=== PATIENT | female | born 1950 | race Hispanic/Latino ===

== ENCOUNTER 2018-04-10 11:01 | Emergency (ER) | payer MEDICARE, OTHER ==
--- NOTE | 2018-04-10 11:56 | Emergency Department Report ---
ED Back Pain/Injury HPI - General Chief Complaint: Fall Stated Complaint: FELL HURT BACK Source: patient Limitations: No Limitations - History of Present Illness Initial Comments: This is a 68-year-old female who presents with lower back pain for 5 days. Patient state she fell last Friday at home landing on her tailbone. She reports pain as 7 out of 10 on pain scale while sitting or with movement. Pain is sharp and achy sensation. She denies swelling, obvious deformity, change in voiding or bowel pattern, numbness or tingling, radiating pain, paresthesia, or weakness. Complaint: back pain Onset/Timin -: days(s) Similar Symptoms Previously: No Place: home Radiation: abdomen Severity: moderate Severity scale (0 -10): 7 Quality: aching Consistency: intermittent Improves With: none Worsens With: movement, sitting upright Context: fall Associated Symptoms: denies: weakness, numbness, difficulty urinating, incontinence, fever/chills Treatments Prior to Arrival: NSAIDS - Related Data Previous Rx's Medication Instructions Recorded Last Taken Type Ibuprofen [Motrin 800 MG tab] 800 mg PO Q8HR PRN #15 tablet 04/10/18 Unknown Rx methOCARBAMOL [Robaxin TAB] 500 mg PO BID PRN #12 tab 04/10/18 Unknown Rx Allergies Allergy/AdvReac Type Severity Reaction Status Date / Time codeine AdvReac Vomiting Verified 04/10/18 11:20 tramadol AdvReac Vomiting Verified 04/10/18 11:20 ED Review of Systems ROS: Stated complaint: FELL HURT BACK Other details as noted in HPI Constitutional: denies: chills, fever Respiratory: denies: cough, shortness of breath, wheezing Cardiovascular: denies: chest pain, palpitations Gastrointestinal: denies: abdominal pain, nausea, diarrhea Musculoskeletal: back pain. denies: joint swelling, arthralgia Skin: denies: rash, lesions Neurological: denies: headache, weakness, paresthesias Psychiatric: denies: anxiety, depression ED Past Medical Hx - Past Medical History lymphoma ED Back Pain Physical Exam - Exam General: Vital signs noted. No distress. Alert and acting appropriately. Back/Abdomen: Yes Sacroiliac Tenderness (tenderness along L3 through L5, no erythema or swelling), No Abdominal Tenderness, No Perithoracic Tenderness, No Perilumbar Tenderness, No Flank Tenderness, No Straight Leg Raise Pain Neuro: Yes Normal Sensation, Yes Normal DTR's, Yes Normal Gait, No Motor Weakness ED Course Vital Signs 04/10/18 11:14 Temperature 97.9 F Pulse Rate 90 Respiratory 18 Rate Blood Pressure 118/59 O2 Sat by Pulse 97 Oximetry Ed Back Pain Tests - Tests Tests: Normal UA, Normal X Rays ED Medical Decision Making - Lab Data Lab Results 04/10/18 Range/Units 13:06 Urine Color Yellow (Yellow) Urine Turbidity Slightly-cloudy (Clear) Urine pH 6.0 (5.0-7.0) Ur Specific [place] 1.004 (1.003-1.030) Urine Protein <15 mg/dl (Negative) mg/dL Urine Glucose (UA) Neg (Negative) mg/dL Urine Ketones Neg (Negative) mg/dL Urine Blood Neg (Negative) Urine Nitrite Neg (Negative) Urine Bilirubin Neg (Negative) Urine Urobilinogen < 2.0 (<2.0) mg/dL Ur Leukocyte Esterase Sm (Negative) Urine WBC (Auto) 6.0 (0.0-6.0) /HPF Urine RBC (Auto) 2.0 (0.0-6.0) /HPF U Epithel Cells (Auto) 10.0 (0-13.0) /HPF Urine Bacteria (Auto) 2+ (Negative) /HPF Urine Mucus Few /HPF - Radiology Data Radiology results: report reviewed LUMBAR SPINE RADIOGRAPHS INDICATION: Tenderness L3-L5. COMPARISON: None similar at this institution. FINDINGS: AP and lateral lumbar spine radiographs demonstrate normal vertebral body stature and alignment. Possible osteopenia. Slight lower lumbar degenerative spurring. Grossly preserved disc heights. Nonaneurysmal abdominal aorta with extensive atherosclerotic calcifications. Intact SI joints. Numerous pelvic phleboliths. Nonobstructive bowel gas pattern. Clear imaged lung bases with few extrinsic artifacts. CONCLUSION: No acute lumbar spine radiographic abnormality, as described. - Medical Decision Making Patient was examined by me. Vitals are normal and patient is in no acute distress. Obtained a urinalysis and x-ray of L-spine. X-rays dictated by radiologist and report reviewed by myself. No acute lumbar spine radiographic abnormality, as described. Urinalysis unremarkable. Muscle strain of lower back. Start ibuprofen and robaxin for pain. Plan discussed with patient to discharge home and treat outpatient. Patient discharged home in stable condition. Follow up with PCP in 2-3 days. Critical care attestation.: If time is entered above; I have spent that time in minutes in the direct care of this critically ill patient, excluding procedure time. ED Disposition Clinical Impression: Strain of muscle, fascia and tendon of lower back, initial encounter Acute low back pain Qualifiers: Back pain laterality: midline Sciatica presence: without sciatica Qualified Code(s): M54.5 - Low back pain Disposition: TO HOME OR SELFCARE Is pt being admited?: No Does the pt Need Aspirin: No Condition: Stable Instructions: Low Back Strain (ED), Core Strengthening Exercises (GEN) Additional Instructions: Rest Use ice or heat on affected area for 20 minutes and off for 2 hours. Take pain medication as needed for pain. Don't drive or operate heavy machinery while taking muscle relaxers because they may cause drowsiness. Follow up with Primary Care Provider in 2-3 days. Prescriptions: Ibuprofen [Motrin 800 MG tab] 800 mg PO Q8HR PRN #15 tablet PRN Reason: Pain , Severe (7-10) methOCARBAMOL [Robaxin TAB] 500 mg PO BID PRN #12 tab PRN Reason: Muscle Spasm Referrals: JESSICA DAY MD [Primary Care Provider] - 3-5 Days [facility] [Outside] - 3-5 Days [facility] [Outside] - 3-5 Days OMAR WASSERMAN MD [Staff Physician] - 3-5 Days Forms: Work/School Release Form(ED) Time of Disposition: 13:27
--- NOTE | 2018-04-10 12:23 | XRay Report ---
LUMBAR SPINE RADIOGRAPHS INDICATION: Tenderness L3-L5. COMPARISON: None similar at this institution. FINDINGS: AP and lateral lumbar spine radiographs demonstrate normal vertebral body stature and alignment. Possible osteopenia. Slight lower lumbar degenerative spurring. Grossly preserved disc heights. Nonaneurysmal abdominal aorta with extensive atherosclerotic calcifications. Intact SI joints. Numerous pelvic phleboliths. Nonobstructive bowel gas pattern. Clear imaged lung bases with few extrinsic artifacts. CONCLUSION: No acute lumbar spine radiographic abnormality, as described. Thank you for the opportunity to participate in this patient's care.
[2018-04-10 13:21] LABS: Bacteria,Urine 2+ /HPF (Negative); Bilirubin,Urine NEG (Negative); Blood,Urine NEG (Negative); Color,Urine Yellow (Yellow); Mucus,Urine FEW /HPF; Protein,Urine <15 mg/dL mg/dL (Negative); Urobilinogen,Urine < 2.0 mg/dL (<2.0)
[2018-04-12 11:56] VITALS: BP 118/67
== END 2018-04-10 13:35 | disposition home or self-care (01) ==
LOC: ED 11:01
DX: S39.012A Strain of muscle, fascia and tendon of lower back, initial encounter (principal); Z88.6 Allergy status to analgesic agent; W18.30XA Fall on same level, unspecified, initial encounter; Y93.89 Activity, other specified; Y92.89 Other specified places as the place of occurrence of the external cause; Y99.8 Other external cause status
CPT/HCPCS: 72100; 81001